=== PATIENT | male | born 1970 | race Caucasian/White ===

== ENCOUNTER 2020-09-07 10:09 | Emergency (ER) | payer OTHER ==
[~2020-09-07] VITALS: Ht 185.4 cm; Wt 99.8 kg
[2020-09-07 10:16] VITALS: BP 137/84
--- NOTE | 2020-09-07 10:20 | NUR ---
The patient bibs for c/o "Lifted sofa this am now have Left Arm pain". Rates pain 4/10. No swelling or bruising noted. Will continue to monitor the patient.
--- NOTE | 2020-09-07 11:06 | NUR ---
The patient alert and oriented x4. Patient discharged to home in stable condition. Written and verbal after care instructions given. Patient verbalizes understanding of instruction.
== END 2020-09-07 11:07 | disposition home or self-care (01) ==
LOC: ER 10:11
DX: S46.212A Strain of muscle, fascia and tendon of other parts of biceps, left arm, initial encounter (principal); X50.0XXA Overexertion from strenuous movement or load, initial encounter; Y93.89 Activity, other specified; Y92.89 Other specified places as the place of occurrence of the external cause; Y99.8 Other external cause status
CPT/HCPCS: 73060-TC